=== PATIENT | female | born 1940 | race Caucasian/White ===

== ENCOUNTER → 2016-08-05 | Outpatient (CLI) | payer OTHER ==
[~2016-08-05] MED LIST: ACET500T76 PO; AMLO5TAB4 PO; ASPI-496 PO; CALC400T40 PO; CETI10TA24 PO; CHOL10003 PO; CRAN250C PO; DRON400T PO; FAMO20TA7 PO; FEXO180T72 PO; FLUT9.9S NS; HYDR-3138 PO; HYDR-883 PO; LACT1CAP35 PO; LATA2.5D2 EACHEYE; LEVA15HF2 INH; LEVO125T PO; LEVO25TA2 PO; META800T21 PO; METO25TA35 PO; OXYC5TAB3 PO; RALO60TA PO; RIVA20TA PO; ROSU5TAB PO
[2016-08-05 11:41] LABS: BLOOD UREA NITROGEN 17 mg/dL (7-18)
[2016-08-05 11:45] LABS: ASPARTATE AMINO TRANSFERASE 22 U/L (15-37)
== END | disposition home or self-care (01) ==
LOC: STAR 10:24
PROVIDERS: ATTEND Internal Medicine Cardiovascular Disease
DX: I48.91 Unspecified atrial fibrillation (principal)
CPT/HCPCS: 36415; 80053; 85610

== ENCOUNTER 2016-08-09 10:24 | Day surgery (SDC) | payer OTHER ==
[2016-08-05 11:00] VITALS: BP 131/76
[~2016-08-09] VITALS: Ht 167.6 cm; Wt 65.9 kg
[2016-08-09] MEDS ORDERED: PROPOFOL 10 MG/ML, 20ML ONE (10:28)
[2016-08-09] MEDS ORDERED: SODIUM CHLORIDE 0.9% 1,000 ML IV SCH (11:00)
== END 2016-08-09 13:00 | disposition home or self-care (01) ==
LOC: CACL 10:24
PROVIDERS: ATTEND Internal Medicine Cardiovascular Disease
DX: I48.0 Paroxysmal atrial fibrillation (principal); I34.0 Nonrheumatic mitral (valve) insufficiency; Z95.0 Presence of cardiac pacemaker; Z88.0 Allergy status to penicillin; Z88.3 Allergy status to other anti-infective agents; I10 Essential (primary) hypertension; J45.909 Unspecified asthma, uncomplicated; E78.2 Mixed hyperlipidemia
CPT/HCPCS: 92960; 93312; 93321; 93325; J2704

== ENCOUNTER → 2020-01-03 | Outpatient (CLI) | payer OTHER ==
[~2020-01-03] MED LIST changes: +ACET500T64 PO; -ACET500T76 PO; -CETI10TA24 PO; +CETI10TA76 PO; -HYDR-3138 PO; +HYDR-3237 PO; +HYDR-3652 PO; -HYDR-883 PO; -LEVA15HF2 INH; +LEVA15HF4 INH; +META-23 PO; -META800T21 PO
== END | disposition home or self-care (01) ==
LOC: CFH 09:44
PROVIDERS: ATTEND Internal Medicine
DX: I73.9 Peripheral vascular disease, unspecified (principal); H02.412 Mechanical ptosis of left eyelid; H54.50 Low vision, one eye, unspecified eye
CPT/HCPCS: 70450

== ENCOUNTER 2020-01-13 09:01 | Emergency (ER) | payer OTHER ==
[~2020-01-13] VITALS: Ht 167.6 cm; Wt 65.9 kg
[2020-01-13 09:05] VITALS: BP 166/67
--- NOTE | 2020-01-13 09:44 | NUR ---
PT HAS CO DIFFICULTY URINATING, UNABLE TO VOID COMPLETELY FOR 3 DAYS. DENIES BLOOD IN URINE. STRAIGHT CATHED, DRAINED 800 ML CLEAR YELLOW. UA SENT.
[2020-01-13 09:50] LABS: MICROSCOPIC NOT IND
--- NOTE | 2020-01-13 10:14 | NUR ---
Patient/Caregiver given discharge instructions and they have confirmed that they understand the instructions. Patient ambulatory with steady gait.
== END 2020-01-13 10:16 | disposition home or self-care (01) ==
LOC: ED 09:20
DX: K59.00 Constipation, unspecified (principal); R33.9 Retention of urine, unspecified; I10 Essential (primary) hypertension; J44.9 Chronic obstructive pulmonary disease, unspecified; E78.00 Pure hypercholesterolemia, unspecified; I48.91 Unspecified atrial fibrillation; Z95.0 Presence of cardiac pacemaker; Z87.891 Personal history of nicotine dependence
CPT/HCPCS: 74018; 81003; 99284

== ENCOUNTER → 2020-10-07 | Outpatient (CLI) | payer OTHER ==
[~2020-10-07] MED LIST changes: -DRON400T PO; +DRON400T6 PO; +HYDR-1067 PO; -HYDR-3652 PO; -OXYC5TAB3 PO; +OXYC5TAB98 PO
== END | disposition home or self-care (01) ==
LOC: CFH 14:27
PROVIDERS: ATTEND Internal Medicine
DX: Z12.31 Encounter for screening mammogram for malignant neoplasm of breast (principal); Z12.39 Encounter for other screening for malignant neoplasm of breast
CPT/HCPCS: 76641; 77063; 77067

== ENCOUNTER → 2020-10-28 | Outpatient (CLI) | payer OTHER | END | disposition home or self-care (01) | LOC: CFH 07:06 | PROVIDERS: ATTEND Internal Medicine | DX: N63.11 Unspecified lump in the right breast, upper outer quadrant (principal) | CPT/HCPCS: 76642; 77066 ==

== ENCOUNTER 2020-12-15 06:06 | Day surgery (SDC) | payer OTHER ==
[~2020-12-15] VITALS: Ht 167.6 cm; Wt 65.9 kg
[2020-12-15 06:57] VITALS: BP 153/80
== END 2020-12-15 08:50 | disposition home or self-care (01) ==
LOC: CACL 06:06
PROVIDERS: ATTEND Internal Medicine Cardiovascular Disease
DX: I48.0 Paroxysmal atrial fibrillation (principal); I10 Essential (primary) hypertension; E78.2 Mixed hyperlipidemia; Z79.01 Long term (current) use of anticoagulants; Z79.899 Other long term (current) drug therapy; Z88.0 Allergy status to penicillin; Z88.8 Allergy status to other drugs, medicaments and biological substances; Z95.0 Presence of cardiac pacemaker